=== PATIENT | male | born 1965 | race Caucasian/White ===

== ENCOUNTER 2021-01-17 15:11 | Emergency (ER) | payer OTHER ==
[~2021-01-17] VITALS: Ht 185.4 cm; Wt 90.3 kg
[2021-01-17] MEDS ORDERED: CIPRO500 MG PO (18:21)
== END 2021-01-17 18:28 | disposition home or self-care (01) ==
LOC: ER 15:11
DX: S61.402A Unspecified open wound of left hand, initial encounter (principal); W18.30XA Fall on same level, unspecified, initial encounter; Y93.89 Activity, other specified; Y92.89 Other specified places as the place of occurrence of the external cause

== ENCOUNTER 2021-01-25 08:40 | Emergency (ER) | payer OTHER ==
[~2021-01-25] VITALS: Ht 188 cm; Wt 90.7 kg
[~2021-01-25 08:40] MED LIST: CIPRO500 MG PO
== END 2021-01-25 10:59 | disposition home or self-care (01) ==
LOC: ER 08:40
DX: Z48.02 Encounter for removal of sutures (principal)